=== PATIENT | male | born 1960 | race Caucasian/White ===

== ENCOUNTER 2017-10-03 17:59 | Emergency (ER) | payer MEDICAID ==
[~2017-10-03] VITALS: Ht 177.8 cm; Wt 82.0 kg
[~2017-10-03 17:59] MED LIST: ALBU18HF2 INH; GABA600T2 PO; METH-360 PO; MULT1TAB74 PO; PER10325T PO; VARE0.5T PO; ZOLP10TA5 PO
[2017-10-03] MEDS ORDERED: ketorolac trometh. 30mg/ml inj. IM ONE (19:55)
[2017-10-03 20:12] VITALS: BP 115/65
== END 2017-10-03 20:14 | disposition home or self-care (01) ==
LOC: ER 17:59
DX: S39.012A Strain of muscle, fascia and tendon of lower back, initial encounter (principal); M54.42 Lumbago with sciatica, left side; G89.29 Other chronic pain; F17.200 Nicotine dependence, unspecified, uncomplicated; Z88.0 Allergy status to penicillin; Z79.899 Other long term (current) drug therapy; Z98.890 Other specified postprocedural states; Z60.2 Problems related to living alone; Z59.0 Homelessness; X58.XXXA Exposure to other specified factors, initial encounter; Y93.89 Activity, other specified; Y92.89 Other specified places as the place of occurrence of the external cause; Y99.8 Other external cause status
CPT/HCPCS: 96372; 99283; J1885

== ENCOUNTER 2024-05-10 10:42 | Outpatient (CLI) | payer MEDICAID ==
[~2024-05-10 10:42] MED LIST changes: +BACL10TA PO; +GABA-530 PO; -GABA600T2 PO; +HYDR-3686 PO; +LURA40TA2 PO; -METH-360 PO; +MULT-620 PO; -MULT1TAB74 PO
[2024-05-10 11:44] VITALS: PULSE 71; RESP 18; O2SAT 94
== END 2024-05-10 23:59 | disposition home or self-care (01) ==
LOC: RT 10:42
PROVIDERS: ATTEND Family Medicine
DX: R94.2 Abnormal results of pulmonary function studies (principal); J44.9 Chronic obstructive pulmonary disease, unspecified
CPT/HCPCS: 94010; 94760

== ENCOUNTER 2024-07-05 11:28 | Outpatient (CLI) | payer MEDICAID | END 2024-07-05 23:59 | disposition home or self-care (01) | LOC: RAD 11:28 | PROVIDERS: ATTEND Internal Medicine | DX: Z12.2 Encounter for screening for malignant neoplasm of respiratory organs (principal); J43.9 Emphysema, unspecified; J47.9 Bronchiectasis, uncomplicated; F17.210 Nicotine dependence, cigarettes, uncomplicated | CPT/HCPCS: 71271 ==